=== PATIENT | male | born 1995 | race Caucasian/White ===

== ENCOUNTER 2016-03-08 12:23 | Emergency (ER) | payer OTHER ==
[~2016-03-08] VITALS: Ht 165.1 cm; Wt 69.9 kg
[~2016-03-08 12:23] MED LIST: ACET-1256 PO; IBUP-1050 PO
[2016-03-08 12:28] VITALS: TEMP 36.7; Ht 165.1 cm; Wt 69.9 kg
[2016-03-08 13:06] VITALS: O2SAT 100
[2016-03-08 13:22] LABS: BASO % 0.8 %; BASO ABS # 0.05 K/uL (0-0.2); COMPLETE YES; EOS % 2.4 %; HEMATOCRIT 43.1 % (42-52); IG% 0.2 %; LYMPH ABS # 1.45 K/uL (1.2-3.4); MEAN CELL VOLUME 81.3 fL (80-100); MEAN CORPUSCULAR HEMOGLOBIN 28.5 pg (25-34); MEAN PLATELET VOLUME 10.4 fL (7.4-10.4); MONO % 17.9 %; NEUT % 56.7 %; PLATELET COUNT 201 K/uL (130-400); WHITE BLOOD COUNT 6.58 K/uL (4.8-10.8)
--- NOTE | 2016-03-08 13:28 | DIAGNOSTIC IMAGING REPORT ---
SINGLE VIEW CHEST CLINICAL HISTORY: Atypical chest pain. FINDINGS: An AP, portable, upright chest radiograph is compared to study dated 11/03/2015. The cardiomediastinal silhouette is unremarkable. The lungs and pleural spaces are clear. No pneumothorax is seen. The bony thorax is grossly intact. IMPRESSION: No active disease in the chest. Electronically signed by: Fritz Davis M.D. 03/08/2016 1:27 PM Dictated Date/Time: 03/08/2016 1:26 PM
[2016-03-08 13:42] LABS: BLOOD UREA NITROGEN 8 mg/dl (7-18); BUN/CREATININE RATIO 8.5 (10-20); CARBON DIOXIDE 29 mmol/L (21-32); CHLORIDE 104 mmol/L (98-107); CREATININE 0.96 mg/dl (0.60-1.40); GLUCOSE 80 mg/dl (70-99); POTASSIUM 3.4 mmol/L (3.5-5.1); SODIUM 140 mmol/L (136-145)
[2016-03-08 13:47] LABS: ALB/GLOB RATIO 1.3 (0.9-2); ALKALINE PHOSPHATASE 88 U/L (45-117); ALT/SGPT 19 U/L (12-78); AST/SGOT 10 U/L (15-37); CKMB/CK RATIO 0.9 (0-3.0)
--- NOTE | 2016-03-08 13:59 | EMERGENCY ROOM VISIT NOTE ---
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 The patient reports that around 2 AM, he was playing video games and talking on the phone when his left arm went numb. After that, the patient began to have some substernal chest pain. He states that when he got to work this morning, he was slightly lightheaded. He had chest pain while he was at work today. He states that his symptoms have completely resolved and he feels fine at this time. He was seen at [facility] and was told to come here due to an abnormal EKG. He denies any history of cardiac disease. He denies any family history of cardiac issues at a young age. The patient denies shortness of breath, cough, recent illness, fevers, chills, nausea or vomiting. Review of Systems A complete 10-point Review of Systems was discussed with the patient, with pertinent positives and negatives listed in the History of Present Illness. All remaining Review of Systems questions can be considered negative unless otherwise specified. Past Medical/Surgical History Surgical Problems: (1) No significant past surgical history Social History Problems: (1) Cigarette nicotine dependence, uncomplicated Family History FH: cancer Social History Smoking Status: Current Every Day Smoker Alcohol Use: occasionally Marital Status: single Housing Status: lives with friends Occupation Status: employed Current/Historical Medications No Active Prescriptions or Reported Meds Allergies Coded Allergies: No Known Allergies (Unverified , 11/03/15) Physical Exam Vital Signs Date Time Temp Pulse Resp B/P Pulse Ox O2 Delivery O2 Flow Rate FiO2 03/08/16 14:13 85 20 115/70 100 03/08/16 13:53 62 15 100 03/08/16 13:23 59 15 99 03/08/16 13:07 72 03/08/16 13:06 100 Room Air 03/08/16 13:06 72 20 134/75 100 03/08/16 13:04 134/75 03/08/16 13:00 100 Room Air 03/08/16 12:28 36.7 60 18 120/73 98 Physical Exam VITALS: Vitals are noted on the nurse's note and reviewed by myself. Vital signs stable. GENERAL: This is a 20-year-old male, in no acute distress, nondiaphoretic, well- developed well-nourished. SKIN: Capillary reflex less than 2 seconds. HEENT: Normocephalic. PERRLA. EOMI. Nares patent. Mucous membranes moist. Neck is supple without nuchal rigidity. HEART: Regular rate and rhythm without murmurs gallops or rubs. LUNGS: Clear to auscultation bilaterally without wheezes, rales or rhonchi. MUSCULOSKELETAL: Strength 5/5 throughout. NEURO: Patient was alert and oriented to person place and time. Normal sensation to light and sharp touch. Medical Decision & Procedures ER Provider Diagnostic Interpretation: SINGLE VIEW CHEST CLINICAL HISTORY: Atypical chest pain. FINDINGS: An AP, portable, upright chest radiograph is compared to study dated 11/03/2015. The cardiomediastinal silhouette is unremarkable. The lungs and pleural spaces are clear. No pneumothorax is seen. The bony thorax is grossly intact. IMPRESSION: No active disease in the chest. Laboratory Results 03/08/16 13:11 Red Blood Count 5.30, Mean Corpuscular Volume 81.3, Mean Corpuscular Hemoglobin 28.5, Mean Corpuscular Hemoglobin Concent 35.0, Mean Platelet Volume 10.4, Neutrophils (%) (Auto) 56.7, Lymphocytes (%) (Auto) 22.0, Monocytes (%) (Auto) 17.9, Eosinophils (%) (Auto) 2.4, Basophils (%) (Auto) 0.8, Neutrophils # (Auto ) 3.73, Lymphocytes # (Auto) 1.45, Monocytes # (Auto) 1.18, Eosinophils # (Auto ) 0.16, Basophils # (Auto) 0.05 03/08/16 13:11 Test 03/08/16 13:11 White Blood Count 6.58 K/uL (4.8-10.8) Red Blood Count 5.30 M/uL (4.7-6.1) Hemoglobin 15.1 g/dL (14.0-18.0) Hematocrit 43.1 % (42-52) Mean Corpuscular Volume 81.3 fL (80-100) Mean Corpuscular Hemoglobin 28.5 pg (25-34) Mean Corpuscular Hemoglobin Concent 35.0 g/dl (32-36) Platelet Count 201 K/uL (130-400) Mean Platelet Volume 10.4 fL (7.4-10.4) Neutrophils (%) (Auto) 56.7 % Lymphocytes (%) (Auto) 22.0 % Monocytes (%) (Auto) 17.9 % Eosinophils (%) (Auto) 2.4 % Basophils (%) (Auto) 0.8 % Neutrophils # (Auto) 3.73 K/uL (1.4-6.5) Lymphocytes # (Auto) 1.45 K/uL (1.2-3.4) Monocytes # (Auto) 1.18 K/uL (0.11-0.59) Eosinophils # (Auto) 0.16 K/uL (0-0.5) Basophils # (Auto) 0.05 K/uL (0-0.2) RDW Standard Deviation 39.6 fL (36.4-46.3) RDW Coefficient of Variation 13.2 % (11.5-14.5) Immature Granulocyte % (Auto) 0.2 % Immature Granulocyte # (Auto) 0.01 K/uL (0.00-0.02) Anion Gap 7.0 mmol/L (3-11) Est Creatinine Clear Calc Drug Dose 105.0 ml/min Estimated GFR () 129.5 Estimated GFR (Non- 111.8 BUN/Creatinine Ratio 8.5 (10-20) Calcium Level 9.0 mg/dl (8.5-10.1) Total Bilirubin 0.7 mg/dl (0.2-1) Aspartate Amino Transf (AST/SGOT) 10 U/L (15-37) Alanine Aminotransferase (ALT/SGPT) 19 U/L (12-78) Alkaline Phosphatase 88 U/L (45-117) Total Creatine Kinase 111 U/L (39-308) Creatine Kinase MB 1.0 ng/ml (0.5-3.6) Creatine Kinase MB Ratio 0.9 (0-3.0) Troponin I < 0.015 ng/ml (0-0.045) Total Protein 8.3 gm/dl (6.4-8.2) Albumin 4.7 gm/dl (3.4-5.0) Globulin 3.6 gm/dl (2.5-4.0) Albumin/Globulin Ratio 1.3 (0.9-2) ECG Rate (beats per minute): 63 Rhythm: normal sinus Findings: 1st degree AV block, no acute ischemic change, no ectopy Change: no significant change Medical Decision Differential diagnosis includes acute coronary syndrome, pulmonary embolism, pneumothorax, pericarditis, myocarditis, endocarditis, anxiety, musculoskeletal pain, GERD, costochondritis, among others. The patient was evaluated as above. Labs were drawn and IV access was obtained. Imaging studies were performed and read by radiology as above. 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 The patient was reassessed multiple times during their stay in the emergency department and remained in stable condition. The patient is a 20-year-old male who presents today complaining of chest pain which has since resolved. Labs revealed no leukocytosis or anemia. There are no concerning joint abnormalities. Troponin was not elevated. EKG showed a normal sinus rhythm with first-degree AV block. This is unchanged from a previous EKG. I do not feel that the patient's symptoms are cardiac in nature. He was instructed to follow-up closely with his primary care provider and return sooner for any worsening symptoms. Based on the patient's presentation, lab results, and imaging studies, I feel the patient is stable for outpatient treatment. The patient's case was reviewed with Dr. Walter, ED attending physician, who agreed with my assessment and treatment plan. Discharge instructions were reviewed with the patient. The patient verbalized understanding of my assessment and treatment plan and was discharged home in good condition. Impression Primary Impression: Non-cardiac chest pain Departure Information Dispostion Home / Self-Care Condition GOOD Prescriptions No Active Prescriptions or Reported Meds Referrals Sebastian Chase M.D. (PCP) Patient Instructions My [facility] Additional Instructions You have been treated in the Emergency Department for your Non-Cardiac Chest Pain. Laboratory results and Imaging Studies have ruled out any cardiac or pulmonary cause of your chest pain. For pain control, you can use the following pwzy-svi-lytznba medicines (if >12 yo): - Regular strength (325mg/tab) Tylenol (acetaminophen) 2 tabs every 4-6 hours as needed. Do not exceed 12 tablets in a 24 hour period. Avoid taking more than 4 grams (4000 mg) of Tylenol per day. This includes any other sources of acetaminophen you may take on a regular basis. - Regular strength (200 mg/tab) Advil (ibuprofen) 1-2 tabs every 4-6 hours as needed. Do not exceed a dose of 3200 mg per day. You should schedule a follow-up appointment with your Primary Care Provider in 2 -3 days for further evaluation from today's Emergency Department visit. Return to the Emergency Department if your current symptoms worsen despite treatment course outlined above, or if you develop any of the following symptoms : worsening chest pain, associated jaw/arm pain, nausea, dizziness, shortness of breath, bloody cough, or fainting.
[2016-03-08 14:13] VITALS: BP 115/70; PULSE 85; O2SAT 100
== END 2016-03-08 14:15 | disposition home or self-care (01) ==
LOC: C.EDB 12:25 → C.EDC 14:15
DX: R07.9 Chest pain, unspecified (principal); I44.0 Atrioventricular block, first degree; F17.200 Nicotine dependence, unspecified, uncomplicated; Z80.9 Family history of malignant neoplasm, unspecified

== ENCOUNTER 2016-09-22 23:33 | Emergency (ER) | payer OTHER ==
[~2016-09-22] VITALS: Ht 165.1 cm; Wt 65.4 kg
[2016-09-22 23:35] VITALS: TEMP 36.5; Ht 165.1 cm; Wt 65.4 kg
[2016-09-22 23:41] VITALS: O2SAT 100
--- NOTE | 2016-09-23 00:13 | EMERGENCY ROOM VISIT NOTE ---
History Report prepared by Homer: Samantha Cedillo Under the Supervision of: Dr. Andreas Durand M.D. First contact with patient: 23:46 Chief Complaint: CHEST PAIN Stated Complaint: CHEST PAIN History of Present Illness The patient is a 20 year old male who presents to the Emergency Room with complaints of worsening chest pain starting 27 hours ago. The patient states that the pain started in his ribs and moved into his chest. He describes the pain as a pressure. The patient notes that the pain radiates into his arms intermittently, thought the chest pain is constant. The patient currently rates the pain as a 7/10 in severity. He states that he took extra strength Tylenol with no relief. The patient complains of shortness of breath. The patient denies leg pain, a history of heart problems, and any known medical problems. 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 Source of History: patient Onset: 27 hours ago Position: chest Symptom Intensity: 7/10 Quality: pressure Timing: worsening Associated Symptoms: + SOB Note: The patient complains of the pain radiating into his arms. The patient denies leg pain, a history of heart problems, and any known medical problems. Review of Systems All systems have been listed, reviewed, and are negative other than those previously mentioned. Please see Additional Medical History Sheet. Past Medical & Surgical Surgical Problems: (1) No significant past surgical history Social History Problems: (1) Cigarette nicotine dependence, uncomplicated Family History FH: cancer Social History Smoking Status: Current Every Day Smoker Alcohol Use: occasionally Marital Status: in relationship Housing Status: lives with significant other Occupation Status: employed Current/Historical Medications No Active Prescriptions or Reported Meds Allergies Coded Allergies: No Known Allergies (Unverified , 09/23/16) Physical Exam Vital Signs Date Time Temp Pulse Resp B/P (MAP) Pulse Ox O2 Delivery O2 Flow Rate FiO2 09/23/16 01:00 72 20 119/66 95 Room Air 09/23/16 00:30 65 20 123/64 99 Room Air 09/23/16 00:00 100 Room Air 09/22/16 23:43 57 09/22/16 23:41 100 Room Air 09/22/16 23:35 36.5 58 18 104/66 99 Room Air Physical Exam GENERAL: Patient awake, alert, oriented x 3. Patient follows commands. Patient does not appear toxic. Patient is adequately hydrated and well- nourished. SKIN: No erythema, pallor, cyanosis or rash HEENT: Normal head, pupils equal, reactive to light and accommodation. LUNGS: Clear to auscultation. No wheezes, no rales, no rhonchi. HEART: No murmurs. No gallops. No rubs. No chest wall tenderness to palpation. No signs of trauma or infection. ABDOMEN: No masses, no rebound, no hepatomegaly or splenomegaly. EXTREMITIES: No signs of trauma or infection. No pedal or pretibial edema. No calf or thigh tenderness. NEUROLOGIC: Cranial nerves II-XII within normal limits. No gross motor sensory function deficits. Medical Decision & Procedures ER Provider Diagnostic Interpretation: CHEST X-RAY: Findings: The results were interpreted by me. No acute infiltrates. No pneumothorax. No hemathorax. Normal chest. Laboratory Results 09/23/16 00:19 09/23/16 00:19 Test 09/23/16 00:19 Red Blood Count 4.92 M/uL (4.7-6.1) Mean Corpuscular Volume 85.2 fL (80-100) Mean Corpuscular Hemoglobin 28.9 pg (25-34) Mean Corpuscular Hemoglobin Concent 33.9 g/dl (32-36) RDW Standard Deviation 42.7 fL (36.4-46.3) RDW Coefficient of Variation 13.8 % (11.5-14.5) Mean Platelet Volume 10.9 fL (7.4-10.4) Anion Gap 5.0 mmol/L (3-11) Est Creatinine Clear Calc Drug Dose 111.0 ml/min Estimated GFR () 139.0 Estimated GFR (Non- 120.0 BUN/Creatinine Ratio 11.6 (10-20) Calcium Level 8.7 mg/dl (8.5-10.1) Troponin I < 0.015 ng/ml (0-0.045) Laboratory results as stated above per my review. Medications Administered Medications (Trade) Dose Ordered Sig/[place] Route Start Time Stop Time Status Last Admin Dose Admin Ibuprofen (Motrin Tab) 600 mg NOW STAT PO 09/23/16 00:32 09/23/16 00:33 DC 09/23/16 00:38 600 MG ECG Indication: chest pain Rate (beats per minute): 55 Rhythm: sinus bradycardia Findings: 1st degree AV block, no acute ischemic change, no ectopy Comparison ECG Date: 03/08/2016 Change: no significant change ED Course 2349: Past medical records reviewed. The patient was evaluated in room A10. A complete history and physical examination was performed. 0032: Ordered Motrin Tab 600 mg PO. 0105: Upon reevaluation, the patient appeared to have improvement of his symptoms. He states that his pain is the same and still a 7/10, but he is laughing and smiling with his friends in the room. I discussed today's findings with the patient. He verbalized agreement of the treatment plan. The patient was discharged home. Medical Decision Differential diagnosis: Etiologies such as cardiac ischemia, aortic dissection, pulmonary embolism, pneumonia, pneumothorax, musculoskeletal, infections, pericarditis, myocarditis , esophageal rupture, gastrointestinal, as well as others were entertained. Multiple labs, EKG and imaging were obtained. Please see above. The patient's clinical findings are most suggestive of chest wall pain. The patient does have a first-degree AV block but has had the same, EKG in the past. Troponin is not elevated. The rest of his labs are unremarkable. I believe the patient can safely return home. I do believe his pain is centered in his chest wall. 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 Impression Primary Impression: Chest wall pain Scribe Attestation The scribe's documentation has been prepared under my direction and personally reviewed by me in its entirety. I confirm that the note above accurately reflects all work, treatment, procedures, and medical decision making performed by me. Departure Information Dispostion Home / Self-Care Prescriptions No Active Prescriptions or Reported Meds Referrals No Doctor, Assigned (PCP) Forms HOME CARE DOCUMENTATION FORM, IMPORTANT VISIT INFORMATION Patient Instructions ED [id number]/, My [facility] Additional Instructions 600 mg ibuprofen every 6 hours until pain has resolved. Apply heat to your chest intermittently over the next 3 days. Follow-up with your family physician within the next 7 days. Return here sooner if pain is getting worse.
[2016-09-23] MEDS ORDERED: IBUPROFEN 600 MG TAB PO STA (00:32)
[2016-09-23 00:33] LABS: HEMATOCRIT 41.9 % (42-52); MEAN CELL VOLUME 85.2 fL (80-100); MEAN CORPUSCULAR HEMOGLOBIN 28.9 pg (25-34); MEAN CORPUSCULAR HGB CONC 33.9 g/dl (32-36); MEAN PLATELET VOLUME 10.9 fL (7.4-10.4); PLATELET COUNT 185 K/uL (130-400); RED BLOOD COUNT 4.92 M/uL (4.7-6.1); WHITE BLOOD COUNT 6.93 K/uL (4.8-10.8)
[2016-09-23 00:56] LABS: BLOOD UREA NITROGEN 10 mg/dl (7-18); BUN/CREATININE RATIO 11.6 (10-20); CALCIUM 8.7 mg/dl (8.5-10.1); CARBON DIOXIDE 30 mmol/L (21-32); CHLORIDE 107 mmol/L (98-107); GLUCOSE 71 mg/dl (70-99); POTASSIUM 3.9 mmol/L (3.5-5.1); SODIUM 142 mmol/L (136-145)
[2016-09-23 01:19] VITALS: BP 119/66; PULSE 72; O2SAT 95
--- NOTE | 2016-09-23 06:38 | DIAGNOSTIC IMAGING REPORT ---
CHEST 2 VIEWS ROUTINE HISTORY: 21 years-old Male chest pain COMPARISON: 03/08/2016 TECHNIQUE: Frontal and lateral views of the chest FINDINGS: Cardiomediastinal and hilar silhouettes are within normal limits. No pneumothorax, pleural effusion or focal airspace consolidation. Bones are grossly intact. IMPRESSION: No acute cardiopulmonary process. The above report was generated using voice recognition software. It may contain grammatical, syntax or spelling errors. Electronically signed by: Long Lobo M.D. 09/23/2016 6:36 AM Dictated Date/Time: 09/23/2016 6:36 AM
== END 2016-09-23 01:20 | disposition home or self-care (01) ==
LOC: C.EDB 23:35 → C.EDA 09-23 01:20
DX: R07.89 Other chest pain (principal); I44.0 Atrioventricular block, first degree; F17.210 Nicotine dependence, cigarettes, uncomplicated